=== PATIENT | male | born 1980 | race Caucasian/White ===

== ENCOUNTER 2024-10-18 16:09 | Outpatient (CLI) | payer MEDICAID, SELFPAY ==
--- NOTE | 2024-10-18 16:17 | XR_ITS ---
FINAL REPORT CLINICAL HISTORY: T SPINE PAIN FINDINGS: THORACIC SPINE, 3 views FINDINGS: No fracture is identified. Mild disc space narrowing is seen in the mid thoracic spine. Minimal endplate spurring is noted. Alignment is normal . IMPRESSION: Minimal degenerative change Authenticated and ERN
== END 2024-10-18 23:59 | disposition home or self-care (01) ==
PROVIDERS: PCP Nurse Practitioner; Visit Provider Nurse Practitioner
DX: M47.814 Spondylosis without myelopathy or radiculopathy, thoracic region (principal)
CPT/HCPCS: 72072

== ENCOUNTER 2024-11-15 17:00 | Outpatient (RCR) | payer MEDICAID, SELFPAY | END 2024-11-15 23:59 | disposition home or self-care (01) | LOC: PT 17:00 | PROVIDERS: PCP Nurse Practitioner; Visit Provider Nurse Practitioner | DX: M54.6 Pain in thoracic spine (principal) | CPT/HCPCS: 97110; 97140; 97162; 97530 ==

== ENCOUNTER 2025-01-06 14:10 | Outpatient (CLI) | payer MEDICAID, SELFPAY ==
--- NOTE | 2025-01-06 14:15 | XR_ITS ---
FINAL REPORT CLINICAL HISTORY: KIDNEY STONES x 3 days pain FINDINGS: SINGLE VIEW ABDOMEN A single view of the abdomen was obtained. There is a nonobstructive bowel gas pattern. There are no abnormally dilated loops of small bowel. No abnormal calcifications are identified. IMPRESSION: Nonobstructive bowel gas pattern. Reviewed, Interpreted and Dictated by Gerri Draper MD Transcribed by Toya Chambers Authenticated and [facility]
--- OUTSIDE RECORDS SUMMARY | 2025-01-06 14:15 | XMS_ITS | Clinical Summary ---
Author Organization [employer] ([place], [place], [place], [place]) Address [address] [place] [address] Care Team Providers Care Octave Board Assembler Name Role Phone Toni Elliott MD Primary Care Provider Allergies Active Allergy Reactions Criticality Noted Date Comments Penicillins Swelling High 07/10/2013 Trazodone Rash Low 12/05/2017 Medications clonazePAM (KlonoPIN) 1 MG tabletIndication s:Anxiety Take 1 tablet (1 mg total) by mouth 3 (three) times daily. Max Daily Amount: 3 mg 90 tablet 2 05/10/2024 Active Family History Medical History Relation Name Comments Cancer Father Pancreatic cancer Father Arthritis Maternal Grandmother Dementia Maternal Grandmother Depression Maternal Grandmother Stroke Maternal Grandmother Arthritis Mother Arthritis Paternal Grandmother Relation Name Status Comments Father Maternal Grandmother Mother Paternal Grandmother Social History Tobacco Use Types Packs/Day Years Used Date Smoking Tobacco: Every Day Smokeless Tobacco: Never Alcohol Use Standard Drinks/Week Comments Yes 0 (1 standard drink = 0.6 oz pur e alcohol) seldom [facility] - Mental Health Answer Date Recorde d Little interest or pleasure in doing things Not at all 05/10/2024 Feeling down, depressed, or hopeless Not at all 05/10/2024 Feeling of Stress Not on file 05/10/2024 Family and Community Support Answer Goyo e Recorded Help with Day to Day Activities Not on file 05/05/2023 Feeling Lonely or Isolated Not on file 05/05 Educational Attainment Answer Date Marlon rded Speak language other than Wolof at home Not on file 05/05/2023 Want help with school or training Not on file 05/05/2023 Substance Use Answer Date Recorded Used prescription meds for non-medical reasons N ot on file 05/05/2023 Used illegal drugs past 12 months Not on file 05/05/2023 Sex and Gender Information Value Date Recorded Sex Assigned at Not on file Legal Sex Male 5:49 PM CDT Gender Identity Not on file Sexual Orientation Not on file Last Filed Vital Signs Vital Sign Reading Time Taken Comments Blood Pressure 136/90 05/10/2024 8:05 AM EST Pulse 106 05/10/2024 8:05 AM EST Temperature 36.4 C (97.5 F) 12/18/2023 6:50 PM EDT Respiratory Rate 18 12/18/2023 6:50 PM EDT Oxygen Saturation 96% 05/10/2024 8:05 AM EST Inhaled Oxygen Concentration - - Weight 86.2 kg (190 lb) 05/10/2024 8:05 AM EST Height 172.7 cm (5' 8 ) 05/10/2024 8:05 AM EST Body Mass Index 28.89 05/10/2024 8:05 AM EST Plan of Treatment Health Maintenance Due Date Last Done Comments CT Colonography 1978 Colonoscopy 1978 Colorectal Cancer Screening 1978 FOBT/FIT 1978 Fit-DNA (Cologuard) 1978 Sigmoidoscopy 1978 HIV Screening 1993 Hepatitis C Screening 1996 DTAP/TDAP/TD VACCINES (1 - Tdap) 1997 Pneumococcal Vaccine: 0-49 Y ears (1 of 2 - PCV) 1997 Tobacco Cessation Counseling and Screening (12+) 12/17/2024 12/18/2023 COVID-19 VACCINE (1 - 2023- season) 2024 Influenza Vaccine (#1) 2024 02/04/2019 Depression Screening (12+) 05/10/2025 05/10/2024 Lipid Panel 06/04/2027 06/04/2024, 11/23, 06/06/2022 Procedures Procedure Name Priority Date/Time Associated Diagnosis Comments LIPID PANEL Routine 06/04/2024 1:34 PM EST Elevated lipids from Last 3 Months or Most Recently Relevant to Health Maintenance Results * (ABNORMAL) Lipid panel (06/04/2024 1:34 PM EST) Triglycerides 378(H) 15 - 150 mg/dL 06/04/2024 2:07 PM EST [facility] Cholesterol 174 50 - 200 mg/dL 06/04/2024 2:07 PM EST [facility] Comment: 200 to 239 mg/dL = Moderate (borderline) >239 mg/dL = High HDL Cholesterol 36(L) 40 - 60 mg/dL 06/04/2024 2:07 PM EST [facility] Comment: >=60 mg/dL = Desirable <40 mg/dL = Increased Risk All other components are listed individually or are calculations VLDL Cholesterol 75.6 mg/dL 06/04/19 25 2:07 PM [facility] Cholesterol/HDL ratio 4.8 06/04/2024 2:07 PM [facility] LDl/HDL Ratio 2 06/04/2024 2:07 PM [facility] RISK COMP 5 06/04/2024 2:07 PM [facility] LDL Cholesterol, Calculated 62 mg/dL 06/04/2024 2:07 PM [facility] Blood Venipuncture / Unknown 06/04/2024 1:34 PM EST 06/04/2024 1:39 PM EST Toni Elliott MD LAB BLOOD ORDERABLES Final Result Performing Organization Address City/State/[facility] Co de Phone Number [facility] [address] [phone] from Last 3 Months or Most Recently Relevant to Health Maintenance Insurance [facility] WORK COMP OTHER [facility] Care Teams Octave Board Assembler Relationship Specialty Start Date End Date Toni Elliott MD [address] [place] [address] PCP - General Family Medicine 06/06/22
--- OUTSIDE RECORDS SUMMARY | 2025-01-06 14:15 | XMS_ITS | Referral Summary ---
Author Organization [employer] ([place], [place], [place], [place]) Address [address] [place] [address] Care Team Providers Care Farmworker Cranberry Name Role Phone Toni Elliott MD Primary Care Provider Allergies Active Allergy Reactions Criticality Noted Date Comments Penicillins Swelling High 07/10/2013 Trazodone Rash Low 12/05/2017 Medications clonazePAM (KlonoPIN) 1 MG tabletIndication s:Anxiety Take 1 tablet (1 mg total) by mouth 3 (three) times daily. Max Daily Amount: 3 mg 90 tablet 2 05/10/2024 Active Social History Tobacco Use Types Packs/Day Years Used Date Smoking Tobacco: Every Day Smokeless Tobacco: Never Alcohol Use Standard Drinks/Week Comments Yes 0 (1 standard drink = 0.6 oz pur e alcohol) seldom [facility] - Mental Health Answer Date Recorde [...] Date Marlon rded Speak language other than Singaporean at home Not on file 05/05/2023 Want [...] 05/10/2024 8:05 AM EST Plan of Treatment Not on file Procedures Procedure Name Priority Date/Time Associated Diagnosis Comments LIPID PANEL Routine 06/04/2024 1:34 PM EST Elevated lipids from Last 3 Months or Most Recently Relevant to Health Maintenance Results * (ABNORMAL) Lipid panel (06/04/2024 1:34 PM EST) Triglycerides 378(H) 15 - 150 mg/dL 06/04/2024 2:07 PM EST [facility] Cholesterol 174 50 - 200 mg/dL 06/04/2024 2:07 PM EST [facility] Comment: 200 to 239 mg/dL = Moderate (borderline) >239 mg/dL = High HDL Cholesterol 36(L) 40 - 60 mg/dL 06/04/2024 2:07 PM EST [facility] Comment: >=60 mg/dL = Desirable <40 mg/dL = Increased Risk All other components are listed individually or are calculations VLDL Cholesterol 75.6 mg/dL 06/04/19 25 2:07 PM EST [facility] Cholesterol/HDL ratio 4.8 06/04/2024 2:07 PM EST [facility] LDl/HDL Ratio 2 06/04/2024 2:07 PM EST [facility] RISK COMP 5 06/04/2024 2:07 PM EST [facility] LDL Cholesterol, Calculated 62 mg/dL 06/04/2024 2:07 PM EST [facility] Blood Venipuncture / Unknown 06/04/2024 1:34 PM EST 06/04/2024 1:39 PM EST Toni Elliott MD LAB BLOOD ORDERABLES Final Result [facility] [address] [phone] from Last 3 Months or Most Recently Relevant to Health Maintenance Insurance [facility] [employer] COMP OTHER [facility] Care Teams Farmworker Cranberry Relationship Specialty Start Date End Date Toni Elliott MD [address] [place] [id number] PCP - General Family Medicine 06/06/22
== END 2025-01-06 23:59 | disposition home or self-care (01) ==
LOC: RAD 14:12
PROVIDERS: PCP Nurse Practitioner; Visit Provider Nurse Practitioner
DX: N20.0 Calculus of kidney (principal); R93.3 Abnormal findings on diagnostic imaging of other parts of digestive tract
CPT/HCPCS: 74018